=== PATIENT | female | born 1980 | race Two or more races ===

== ENCOUNTER 2023-05-20 17:35 | Emergency (ER) | payer MEDICARE, MEDICAID ==
[~2023-05-20] VITALS: Ht 167.6 cm; Wt 100.0 kg
[2023-05-20] MEDS ORDERED: KETOROLAC TROMETH 30 MG/ML 1ML VIAL IM ONE (19:15)
[2023-05-20 19:52] VITALS: BP 118/72
[2023-05-20] MEDS ORDERED: CYCL-837 PO (21:03)
[2023-05-20] MEDS ORDERED: IBUP-1456 PO (21:03)
== END 2023-05-20 21:07 | disposition home or self-care (01) ==
LOC: EDBD 17:35 → ER 17:35
DX: S16.1XXA Strain of muscle, fascia and tendon at neck level, initial encounter (principal); I50.9 Heart failure, unspecified; F17.210 Nicotine dependence, cigarettes, uncomplicated; Z79.1 Long term (current) use of non-steroidal anti-inflammatories (NSAID); Z79.899 Other long term (current) drug therapy; X50.1XXA Overexertion from prolonged static or awkward postures, initial encounter; Y93.84 Activity, sleeping; Y92.89 Other specified places as the place of occurrence of the external cause; Y99.8 Other external cause status
CPT/HCPCS: 36415; 72125; 84702; 96372; 99285; J1885